=== PATIENT | male | born 1945 | race Caucasian/White ===

== ENCOUNTER → 2016-06-17 | Outpatient (CLI) | payer MEDICARE | LOC: GMAL 12:35 | PROVIDERS: ATTEND Family Medicine | DX: E55.9 Vitamin D deficiency, unspecified (principal) ==

== ENCOUNTER 2016-10-26 13:15 | Emergency (ER) | payer MEDICARE ==
[2016-10-26 13:34] VITALS: BP 126/64; TEMP 98.1; O2SAT 92
--- NOTE | 2016-10-26 13:34 | ED.PDOC ---
History of Present Illness - General Chief Complaint: General Stated Complaint: Cough and congestion Time Seen by Provider: 10/26/16 13:31 Source: patient, RN notes reviewed, Vital Signs reviewed Exam Limitations: no limitations - History of Present Illness Comments: Patient reports a week of sinus and chest congestion, cough, fever and just not feeling well. Now noticing a lack of energy. He has not taken anything OTC for this. Timing/Duration: week Cough Quality/Degree: mild Possible Cause: illness exposure Improving Factors: nothing Worsening Factors: nothing Associated Symptoms: cough, facial pain, fever/chills, nasal congestion Respiratory Risk Factors: no cause identified Allergies/Adverse Reactions: Allergies NO KNOWN ALLERGY Allergy (Unverified 10/26/16 13:25) Home Medications: Ambulatory Orders Terazosin [Hytrin] 10 mg PO HS 07/07/13 Simvastatin 40 mg PO HS 07/11/13 Cefuroxime Axetil [Ceftin] 500 mg PO BID #20 tab 10/26/16 Review of Systems - Review of Systems Constitutional: States: chills, fever, malaise EENTM: States: see HPI, nose congestion, other - Sinus congestion and pressure Respiratory: States: cough. Denies: short of breath, wheezing Cardiology: States: no symptoms reported Gastrointestinal/Abdominal: States: no symptoms reported. Denies: abdominal pain, nausea, vomiting Musculoskeletal: States: no symptoms reported Skin: States: no symptoms reported Neurological: States: no symptoms reported. Denies: headache Past Medical History (General) - Patient Medical History Hx Stroke: No Hx Cardiac Disorders: Yes - high cholesterol Hx Congestive Heart Failure: No Hx Diabetes: No Hx MRSA: No - Vaccination History Hx Influenza Vaccination: No Hx Pneumococcal Vaccination: Yes - 2016 - Social History Hx Tobacco Use: No Family Medical History - Family History Father Family History: Unknown Living Status: Unknown Physical Exam - Physical Exam General Appearance: Alert, Comfortable, No apparent distress, Well Developed, Well Groomed, Well Hydrated, Well Nourished ENT Exam: hearing grossly normal, TMs normal, pharynx normal, nasal congestion, other - No sinus tenderness Neck: non-tender, full range of motion, supple, lymphadenopathy (R), lymphadenopathy (L) Respiratory: lungs clear, normal breath sounds, no respiratory distress, no accessory muscle use Cardiovascular/Chest: regular rate, rhythm, no gallop, no murmur Extremity: normal range of motion, normal inspection Neurologic: alert, normal mood/affect, oriented x 3 Skin Exam: normal color, warm/dry Departure - Departure Clinical Impression: Acute sinusitis, unspecified Qualifiers: Sinusitis location: maxillary Recurrence: not specified Qualified Code(s): J01.00 - Acute maxillary sinusitis, unspecified Time of Disposition: 13:40 Disposition: Discharge to Home or Self Care Condition: Good Instructions: DI for Sinusitis Diet: resume usual diet Activity: increase activity as tolerated Referrals: Kiet Roman III, MD [Primary Care Provider] - 1-2 Weeks Prescriptions: Cefuroxime Axetil [Ceftin] 500 mg PO BID #20 tab Home Medications: Ambulatory Orders Terazosin [Hytrin] 10 mg PO HS 07/07/13 Simvastatin 40 mg PO HS 07/11/13 Cefuroxime Axetil [Ceftin] 500 mg PO BID #20 tab 10/26/16
[2016-10-26] MEDS ORDERED: methylPREDNISolone SODIUM SUC 125 MG/2 ML VIAL IM ONE (13:35)
== END 2016-10-26 14:00 | disposition home or self-care (01) ==
LOC: ER 13:15
DX: J01.00 Acute maxillary sinusitis, unspecified (principal); E78.00 Pure hypercholesterolemia, unspecified

== ENCOUNTER 2016-10-29 19:18 | Emergency (ER) | payer MEDICARE ==
[2016-10-29 19:50] VITALS: BP 136/80; TEMP 98.2; O2SAT 95
--- NOTE | 2016-10-29 19:56 | ED.PDOC ---
History of Present Illness - General Chief Complaint: General Stated Complaint: coughing, sinsus pressure Time Seen by Provider: 10/29/16 19:41 Source: patient Exam Limitations: no limitations - History of Present Illness Initial Comments: Patient presents with sinusitis for which he started treatment with Ceftin and a steroid shot three days ago. His sore throat has cleared up and he is not as congested, but he says his head feels like its going to explode because of all the coughing. His cough is non-productive. He has clear nasal drainage. No fever. No sick contacts. He tried OTC cough syrup one time and is not sure if it worked or not. Tried Zyrtec as well with not much luck. No other complaints. Timing/Duration: 1 week Severity: moderate Improving Factors: nothing Worsening Factors: cold therapy Associated Symptoms: denies symptoms Allergies/Adverse Reactions: Allergies NO KNOWN ALLERGY Allergy (Verified 10/29/16 19:50) Home Medications: Ambulatory Orders Terazosin [Hytrin] 10 mg PO HS 07/07/13 Simvastatin 40 mg PO HS 07/11/13 Cefuroxime Axetil [Ceftin] 500 mg PO BID #20 tab 10/26/16 Benzonatate Perles [Tessalon Perles] 100 mg PO TID #20 cap 10/29/16 Tamsulosin [Flomax] 0.4 mg PO DAILY 10/29/16 Review of Systems - Review of Systems Constitutional: States: see HPI EENTM: States: see HPI Respiratory: States: see HPI Cardiology: States: no symptoms reported Gastrointestinal/Abdominal: States: no symptoms reported Genitourinary: States: no symptoms reported Musculoskeletal: States: no symptoms reported Skin: States: no symptoms reported Neurological: States: no symptoms reported Endocrine: States: no symptoms reported Hematologic/Lymphatic: States: no symptoms reported Past Medical History (General) - Patient Medical History Hx Seizures: No Hx Stroke: No Hx Dementia: No Hx Asthma: No Hx of COPD: No Hx Cardiac Disorders: No Hx Congestive Heart Failure: No Hx Pacemaker: No Hx Hypertension: No Hx Thyroid Disease: No Hx Diabetes: No Hx Gastroesophageal Reflux: No Hx Renal Disease: No Hx Cancer: No Hx of HIV: No Hx Hepatitis C: No Hx MRSA: No Surgical History: no surgical history - Vaccination History Hx Tetanus, Diphtheria Vaccination: No Hx Influenza Vaccination: No Hx Pneumococcal Vaccination: No Immunizations Up to Date: No - Social History Hx Tobacco Use: No Hx Chewing Tobacco Use: No Hx Alcohol Use: No Hx Substance Use: No Hx Substance Use Treatment: No Hx Depression: No Feels Threatened In Home Enviroment: No Feels Threatened In a Relationship: No Hx Physical Abuse: No Hx Emotional Abuse: No Hx Suspected Abuse: No Family Medical History - Family History Father Family History: Unknown Living Status: Unknown Physical Exam - Physical Exam General Appearance: Alert Eye Exam: bilateral normal Ears, Nose, Throat: normal ENT inspection Neck: non-tender, full range of motion, supple Respiratory: lungs clear Cardiovascular/Chest: regular rate, rhythm Gastrointestinal/Abdominal: normal bowel sounds, non tender, soft Skin Exam: normal color Lymphatic: no adenopathy Departure - Departure Clinical Impression: Acute sinusitis Disposition: Discharge to Home or Self Care Condition: Good Departure Forms: ED Discharge - Pt. Copy, Patient Portal Self Enrollment Diet: resume usual diet Activity: increase activity as tolerated Referrals: Kiet Roman III, MD [Primary Care Provider] - 1-2 Weeks Prescriptions: Benzonatate Perles [Tessalon Perles] 100 mg PO TID #20 cap Home Medications: Ambulatory Orders Terazosin [Hytrin] 10 mg PO HS 07/07/13 Simvastatin 40 mg PO HS 07/11/13 Cefuroxime Axetil [Ceftin] 500 mg PO BID #20 tab 10/26/16 Benzonatate Perles [Tessalon Perles] 100 mg PO TID #20 cap 10/29/16 Tamsulosin [Flomax] 0.4 mg PO DAILY 10/29/16 Additional Instructions: Use Afrin spray as directed on the bottle. May use Claritin as directed on the package as well. Choose either the prescription cough medicine or over the counter syrup. Increase your oral fluid intake.
== END 2016-10-29 20:15 | disposition home or self-care (01) ==
LOC: ER 19:18
DX: J01.90 Acute sinusitis, unspecified (principal); Z79.899 Other long term (current) drug therapy

== ENCOUNTER → 2017-01-19 | Outpatient (CLI) | payer MEDICARE | END | disposition home or self-care (01) | LOC: GMAL 11:09 | PROVIDERS: ATTEND Family Medicine | DX: Z79.899 Other long term (current) drug therapy (principal); E55.9 Vitamin D deficiency, unspecified ==

== ENCOUNTER → 2017-08-21 | Outpatient (CLI) | payer MEDICARE | LOC: GMAL 10:58 | PROVIDERS: ATTEND Family Medicine | DX: D51.3 Other dietary vitamin B12 deficiency anemia (principal); Z12.5 Encounter for screening for malignant neoplasm of prostate | CPT/HCPCS: 82607; G0103 ==

== ENCOUNTER → 2018-02-24 | Outpatient (CLI) | payer MEDICARE | LOC: GMAL 18:51 | PROVIDERS: ATTEND Family Medicine | DX: R53.83 Other fatigue (principal); E55.9 Vitamin D deficiency, unspecified ==

== ENCOUNTER → 2019-05-23 | Outpatient (CLI) | payer MEDICARE | LOC: GMAL 10:30 | PROVIDERS: ATTEND Family Medicine | DX: D51.3 Other dietary vitamin B12 deficiency anemia (principal); I10 Essential (primary) hypertension; R35.0 Frequency of micturition; R53.83 Other fatigue; E78.2 Mixed hyperlipidemia; E55.9 Vitamin D deficiency, unspecified; Z12.5 Encounter for screening for malignant neoplasm of prostate | CPT/HCPCS: 82306; 82607; 84443; G0103 ==

== ENCOUNTER → 2019-05-27 | Outpatient (CLI) | payer MEDICARE ==
--- NOTE | 2019-05-27 10:24 | MRI ---
Study: MRI of the Left Shoulder. Indication: SHOULDER PAIN Technique: Multiplanar, multi sequence MRI of the left shoulder was obtained without intravenous contrast. Comparison: None. Findings: Severe hypertrophic AC joint osteoarthritis. Type I acromion with mild lateral downsloping. Trace subacromial/subdeltoid bursal fluid. Supraspinatus and infraspinatus tendinosis with scattered interstitial fissuring throughout both tendon insertions. Subscapularis tendinosis with low-grade articular tearing superiorly. Grade 1 fatty infiltration rotator cuff musculature. High-grade long head biceps tendon tearing with only miniscule intracapsular and intertubercular remnant components present. Circumferential labral tearing and truncation. Mild glenohumeral joint osteoarthritis with a small joint effusion. No acute fracture. Thickening and edema inferior glenohumeral ligament which can be seen with adhesive capsulitis. Patchy elevated T2 and mildly T1 signal within the proximal humeral metadiaphysis, likely red marrow reconversion but nonspecific. Impression: Supraspinatus and infraspinatus tendinosis with scattered interstitial fissuring throughout both tendon insertions. No full-thickness rupture. Subscapularis tendinosis with low-grade articular tearing superiorly. Grade 1 fatty infiltration rotator cuff musculature. High grade long head biceps tendon tearing. Circumferential labral truncation. Mild glenohumeral joint osteoarthritis with small joint effusion. Adhesive capsulitis. Suspected red marrow reconversion within the proximal humeral metadiaphysis but ultimately nonspecific. Correlation with CBC and bone scan recommended. Electronically signed by: Roderick Yi MD 05/27/2019 10:21 AM [facility]
== END ==
LOC: MRI 07:00
PROVIDERS: ATTEND Family Medicine
DX: S46.112A Strain of muscle, fascia and tendon of long head of biceps, left arm, initial encounter (principal); M19.012 Primary osteoarthritis, left shoulder; M75.02 Adhesive capsulitis of left shoulder; M75.92 Shoulder lesion, unspecified, left shoulder

== ENCOUNTER → 2020-04-02 | Outpatient (CLI) | payer MEDICARE | LOC: GMAL 10:44 | PROVIDERS: ATTEND Family Medicine | DX: D51.3 Other dietary vitamin B12 deficiency anemia (principal); E55.9 Vitamin D deficiency, unspecified; R53.83 Other fatigue; E78.49 Other hyperlipidemia; Z79.899 Other long term (current) drug therapy ==